=== PATIENT | male | born 2000 | race African-American/Black ===

== ENCOUNTER 2020-08-13 00:35 | Emergency (ER) | payer OTHER ==
[~2020-08-13] VITALS: Ht 177.8 cm; Wt 73.0 kg
[2020-08-13 00:37] VITALS: BP 156/80
== END 2020-08-13 03:02 | disposition home or self-care (01) ==
LOC: ER 00:35
DX: F13.10 Sedative, hypnotic or anxiolytic abuse, uncomplicated (principal); F11.10 Opioid abuse, uncomplicated; J45.909 Unspecified asthma, uncomplicated; F17.210 Nicotine dependence, cigarettes, uncomplicated
CPT/HCPCS: 71045; 93005; 99283